=== PATIENT | male | born 1960 | race Caucasian/White ===

== ENCOUNTER → 2022-12-21 23:26 | Outpatient (CLI) | payer BC, SELFPAY ==
[2022-12-21 19:18] LABS: Alanine Aminotransferase 21 U/L (12-78); Albumin Level 4.3 g/dl (3.5-5.0); Albumin/Globulin Ratio 1.9 (1.1-1.8); Alkaline Phosphatase 97 U/L (38-126); Anion Gap 6.5 mEq/L (5-15); Aspartate Amino Transferase 24 U/L (17-59); Bilirubin,Total 0.6 mg/dl (0.2-1.3); Blood Urea Nitrogen 16 mg/dl (9-20); Calcium 9.1 mg/dl (8.4-10.2); Carbon Dioxide 29 mmol/L (22.0-30.0); Chloride 106 mmol/L (98-107); Chol/HDL Ratio 3.2 (1-3.5); Cholesterol 130 mg/dl (140-200); Estimated Glomerular Filt Rate 85 ml/min (>60); GFR (African American) 103 ML/MIN (>60); Globulin 2.3 g/dL (1.3-3.2); Glucose 94 mg/dl (74-100); HDL Cholesterol 41 mg/dl (40-60); Potassium 4.5 mmoL/L (3.5-5.1); Sodium 137 mmol/L (136-145); Total Protein,Serum 6.6 g/dl (6.3-8.2); Triglycerides 123 mg/dl (30-150); VLDL Cholesterol 25 mg/dL (0-40)
[2022-12-21 19:27] LABS: Microalbumin < 6.000 mg/L (0-16.7)
[2022-12-21 19:28] LABS: Direct LDL Cholesterol 71.68 mg/dL (100-129)
[2022-12-21 19:28] LABS: Creatinine,Urine Random 103 mg/dL (Not Estab.)
[2022-12-21 19:39] LABS: Basophils # 0.1 K/mm3 (0-0.2); Basophils % 0.9 % (0.1-2.0); Eosinophils # 0.1 K/mm3 (0.0-0.4); Eosinophils % 1.3 % (0.1-12.0); Hemoglobin 14.3 g/dL (14.1-18.0); Lymphocytes # 0.8 K/mm3 (0.7-4.5); Lymphocytes % 11.2 % (10-50); Mean Corpuscular HGB Conc 31.7 g/dL (31.8-35.4); Mean Corpuscular Hemoglobin 29.4 pg (27.0-31.2); Mean Corpuscular Volume 92.8 fl (80-94); Mean Platelet Volume 9.7 fl (7.4-10.4); Monocytes # 0.6 K/mm3 (0.1-1.0); Monocytes % 8.3 % (1.7-9.3); Neutrophils # 5.8 K/mm3 (1.8-7.8); Neutrophils % 78.3 % (37.0-80.0); Platelet Count 319 K/mm3 (142-424); Red Blood Count 4.85 M/mm3 (4.60-6.20); Red Cell Distribution Width 13.8 % (11.5-17.5); White Blood Count 7.4 K/mm3 (4.8-10.8)
[2022-12-21 19:48] LABS: Prostate Specific Ag Screen 1.1 ng/ml (0.0-4.0); Thyroid Stimulating Hormone 1.49 uIU/mL (0.465-4.68)
[2022-12-21 20:07] LABS: Vitamin B12 836 pg/mL (239-931)
[2022-12-21 20:12] LABS: Hemoglobin A1C 5.2 % (4.0-6.0)
== END ==
PROVIDERS: PCP Nurse Practitioner; Visit Provider Nurse Practitioner
DX: E78.5 Hyperlipidemia, unspecified (principal); I10 Essential (primary) hypertension; K21.9 Gastro-esophageal reflux disease without esophagitis; Z12.5 Encounter for screening for malignant neoplasm of prostate
CPT/HCPCS: 80053; 80061; 82043; 82570; 82607; 83036; 84443; 85025; G0103

== ENCOUNTER → 2023-01-21 06:40 | Outpatient (CLI) | payer BC, SELFPAY ==
[2023-01-21 19:18] LABS: Alanine Aminotransferase 21 U/L (12-78); Albumin Level 4.6 g/dl (3.5-5.0); Alkaline Phosphatase 91 U/L (38-126); Aspartate Amino Transferase 24 U/L (17-59); Bilirubin,Indirect 0.7 mg/dL (0.0-0.9); Bilirubin,Total 0.7 mg/dl (0.2-1.3); Bilirubin,Unconjugated 0.7 mg/dL (0.0-1.1); Total Protein,Serum 6.8 g/dl (6.3-8.2)
== END ==
PROVIDERS: PCP Nurse Practitioner; Visit Provider Nurse Practitioner
DX: E78.5 Hyperlipidemia, unspecified (principal); B35.0 Tinea barbae and tinea capitis; Z79.899 Other long term (current) drug therapy
CPT/HCPCS: 80076

== ENCOUNTER → 2023-03-16 08:57 | Outpatient (CLI) | payer BC, SELFPAY ==
[2023-03-16 18:28] LABS: Basophils % 0.3 % (0.1-2.0); Eosinophils # 0.1 K/mm3 (0.0-0.4); Eosinophils % 0.9 % (0.1-12.0); Hematocrit 39.2 % (42.0-52.0); Hemoglobin 12.7 g/dL (14.1-18.0); Lymphocytes # 0.9 K/mm3 (0.7-4.5); Lymphocytes % 11.1 % (10-50); Mean Corpuscular HGB Conc 32.3 g/dL (31.8-35.4); Mean Corpuscular Hemoglobin 29.5 pg (27.0-31.2); Mean Corpuscular Volume 91.3 fl (80-94); Mean Platelet Volume 10.4 fl (7.4-10.4); Monocytes # 0.7 K/mm3 (0.1-1.0); Monocytes % 9.1 % (1.7-9.3); Neutrophils # 6.3 K/mm3 (1.8-7.8); Neutrophils % 78.5 % (37.0-80.0); Platelet Count 299 K/mm3 (142-424); Red Blood Count 4.29 M/mm3 (4.60-6.20); Red Cell Distribution Width 14.1 % (11.5-17.5)
== END ==
PROVIDERS: PCP Nurse Practitioner; Visit Provider Nurse Practitioner
DX: R60.0 Localized edema (principal)
CPT/HCPCS: 85025

== ENCOUNTER 2024-01-28 18:52 | Outpatient (CLI) | payer BC, SELFPAY ==
[2024-01-28 19:05] LABS: Basophils # 0.1 K/mm3 (0-0.2); Eosinophils # 0.1 K/mm3 (0.0-0.4); Eosinophils % 1.7 % (0.1-12.0); Hematocrit 44.8 % (42.0-52.0); Hemoglobin 14.3 g/dL (14.1-18.0); Lymphocytes # 1.3 K/mm3 (0.7-4.5); Lymphocytes % 25.4 % (10-50); Mean Corpuscular HGB Conc 31.8 g/dL (31.8-35.4); Mean Corpuscular Hemoglobin 30.3 pg (27.0-31.2); Mean Corpuscular Volume 95.3 fl (80-94); Mean Platelet Volume 9.2 fl (7.4-10.4); Monocytes # 0.5 K/mm3 (0.1-1.0); Monocytes % 9.8 % (1.7-9.3); Neutrophils # 3.3 K/mm3 (1.8-7.8); Neutrophils % 62.2 % (37.0-80.0); Platelet Count 245 K/mm3 (142-424); Red Cell Distribution Width 14.2 % (11.5-17.5); White Blood Count 5.2 K/mm3 (4.8-10.8)
[2024-01-28 19:21] LABS: Alanine Aminotransferase 16 U/L (12-78); Albumin Level 4.6 g/dl (3.5-5.0); Albumin/Globulin Ratio 1.9 (1.1-1.8); Alkaline Phosphatase 88 U/L (38-126); Anion Gap 13.7 mEq/L (5-15); Aspartate Amino Transferase 28 U/L (17-59); Bilirubin,Total 0.5 mg/dl (0.2-1.3); Blood Urea Nitrogen 16 mg/dl (9-20); Calcium 9.6 mg/dl (8.4-10.2); Carbon Dioxide 27 mmol/L (22.0-30.0); Chloride 101 mmol/L (98-107); Chol/HDL Ratio 4.4 (1-3.5); Cholesterol 153 mg/dl (140-200); Estimated Glomerular Filt Rate 75 ml/min (>60); GFR (African American) 91 ML/MIN (>60); Globulin 2.4 g/dL (1.3-3.2); Glucose 80 mg/dl (74-100); HDL Cholesterol 35 mg/dl (40-60); Potassium 4.7 mmoL/L (3.5-5.1); Sodium 137 mmol/L (136-145); Triglycerides 174 mg/dl (30-150); VLDL Cholesterol 35 mg/dL (0-40)
[2024-01-28 19:26] LABS: Hemoglobin A1C 5.4 % (4.0-6.0)
[2024-01-28 19:39] LABS: 25-OH Vitamin D, Total 47.3 ng/mL (30-100)
[2024-01-28 20:11] LABS: Vitamin B12 607 pg/mL (239-931)
== END 2024-01-28 23:59 ==
LOC: LAB.DROPOF 18:52
PROVIDERS: PCP Nurse Practitioner; Visit Provider Nurse Practitioner
DX: E78.5 Hyperlipidemia, unspecified (principal); I10 Essential (primary) hypertension; K21.9 Gastro-esophageal reflux disease without esophagitis; F17.210 Nicotine dependence, cigarettes, uncomplicated; Z79.899 Other long term (current) drug therapy
CPT/HCPCS: 80053; 80061; 82306; 82607; 83036; 84443; 85025

== ENCOUNTER 2025-03-29 09:20 | Outpatient (CLI) | payer BC, SELFPAY ==
[2025-03-29 18:46] LABS: Basophils # 0.1 K/mm3 (0-0.2); Basophils % 0.9 % (0.1-2.0); Eosinophils # 0.1 Kmm3 (0.0-0.4); Eosinophils % 2.1 % (0.1-12.0); Hematocrit 43.9 % (42.0-52.0); Hemoglobin 13.9 g/dL (14.1-18.0); Immature Granulocytes # 0.03 10^3uL; Immature Granulocytes % 0.5 %; Lymphocytes % 17.2 % (10-50); Mean Corpuscular HGB Conc 31.7 g/dL (31.8-35.4); Mean Corpuscular Hemoglobin 29.3 pg (27.0-31.2); Mean Corpuscular Volume 92.4 fl (80-94); Mean Platelet Volume 11.1 fl (7.4-10.4); Monocytes # 0.6 K/mm3 (0.1-1.0); Monocytes % 10.1 % (1.7-9.3); Neutrophils # 3.9 K/mm3 (1.8-7.8); Neutrophils % 69.2 % (37.0-80.0); Nucleated Red Blood Cells # 0 10^3/uL; Nucleated Red Blood Cells % 0 %; Platelet Count 210 K/mm3 (142-424); Red Blood Count 4.75 M/mm3 (4.60-6.20); Red Cell Distribution Width 13.9 % (11.5-17.5); Red Cell Distribution Width-SD 47.4 fL; White Blood Count 5.6 K/mm3 (4.8-10.8)
[2025-03-29 19:14] LABS: Alanine Aminotransferase 16 U/L (12-78); Albumin Level 4.3 g/dl (3.5-5.0); Alkaline Phosphatase 81 U/L (38-126); Anion Gap 9.3 mEq/L (5-15); Aspartate Amino Transferase 21 U/L (17-59); Bilirubin,Total 0.8 mg/dl (0.2-1.3); Blood Urea Nitrogen 16 mg/dl (9-20); Calcium 9.1 mg/dl (8.4-10.2); Carbon Dioxide 27 mmol/L (22.0-30.0); Chloride 104 mmol/L (98-107); Chol/HDL Ratio 3.1 (1-3.5); Cholesterol 141 mg/dl (140-200); Estimated Glomerular Filt Rate 84 ml/min (>60); GFR (African American) 102 ML/MIN (>60); Globulin 2.1 g/dL (1.3-3.2); Glucose 84 mg/dl (74-100); HDL Cholesterol 46 mg/dl (40-60); Potassium 4.3 mmoL/L (3.5-5.1); Sodium 136 mmol/L (136-145); Total Protein,Serum 6.4 g/dl (6.3-8.2); Triglycerides 88 mg/dl (30-150); VLDL Cholesterol 18 mg/dL (0-40)
[2025-03-29 19:28] LABS: Direct LDL Cholesterol 70.92 mg/dL (100-129)
[2025-03-29 19:48] LABS: Prostate Specific Ag Screen 1.2 ng/ml (0.0-4.0)
[2025-03-29 19:55] LABS: HIV Combo NEGATIVE (Negative)
[2025-03-29 20:51] LABS: Hepatitis C Ab Qual. W/ RFX REACTIVE (Negative)
--- OUTSIDE RECORDS SUMMARY | 2025-03-30 13:19 | XMS_ITS | Clinical Summary ---
Author Organization [facility] Address [address] [place] [address] Phone Care Team Providers Care Beam Department Supervisor Name Role Phone CamachoCarolee bassett Niya LOPEZ Primary Care Provider Allergies No known active allergies Medications lisinopril (PRINIVIL;ZESTRI L) 10 mg tablet Take 1 Tab by mouth daily. 30 Tab 0 3 Active Additional Information Patient not taking.Reason: Advised by Physician, Reported on 03/07/2024 atorvastatin (LIPITOR) 80 mg tablet Take 1 Tab by mouth daily. 30 Tab 0 3 Active omeprazole (PRILOSEC) 20 mg Oral Capsule, Delayed Release(E.C.)Ind ications:Gastroe sophageal reflux disease without esophagitis TAKE 1 CAPSULE EVERY MORNING BEFORE BREAKFAST 90 Capsule 3 3 Active Additional Information Patient taking differently: 20 mg Oral EVERY DAY BEFORE MEAL, Reason: Advised by Physician, Reported on 02/22/2024 lisinopriL-hydro chlorothiazide (PRINZIDE;ZESTOR ETIC) 20-12.5 mg Oral Tablet Take 1 Tablet by mouth daily. 4 Active Active Problems Problem Noted Date Diagnosed Date Non-recurrent unilateral ing uinal hernia without obstruction or gangrene 07/29/2021 Assessment & Plan (02/11/2024 4:40 PM EDT): Patient has a left inguinal hernia on exam. I reviewed his surgical options including open or robotic approaches. We discussed the relative pros and cons of each approach. We discussed the difference between reducible, incarcerated, and strangulated hernias. I answered all of his questions regarding his options. 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 I have recommended proceeding with an open left inguinal hernia repair with mesh. I reviewed the risks, benefits, and alternatives of surgery. I reviewed the risks, benefits, and types of mesh. We discussed postoperative course and care. Answered all of his questions. he stated his understanding and desire to proceed with surgery. he states that he is agreeable to the use of mesh. We discussed getting PCP risk stratification and optimization prior to surgery. Assessment & Plan (07/29/2021 3:06 PM EDT): The patient has a reducible right inguinal hernia on physical exam. There is no evidence of a left inguinal hernia. We discussed surgical options for repair including robotic versus open. We discussed the utilization of mesh for hernia repairs. Given that the patient has a unilateral hernia which is moderate to large in size, I have recommended an open repair given his intense work. I reviewed the risks, benefits, and alternatives of an open right inguinal hernia repair with mesh. We discussed postoperative course and care. We discussed postoperative restrictions. I reviewed the types, risks, and benefits of hernia mesh. I answered all of his and his 's questions. The patient stated his understanding and desire to proceed with surgery. Patient reports that [place] is a more convenient location for him to have surgery. I reviewed warning signs and symptoms that should prompt urgent evaluation at the hospital. Patient stated his understanding. ED (erectile dysfunction) GERD (gastroesophageal reflux disease) Hyperlipemia Encounters Date Type Department Care Team Description 01/17/2025 Orders Only [facility] [id number] [id number] Negro Robb MD Preop testing (Primary Dx) from Last 3 Months Surgical History Surgery Date Site/Laterality Comments FOOT SURGERY BONE SPUR REMOVED ELBOW SURGERY CHIP REMOVED INGUINAL HERNIA REPAIR 08/27/2021 Right Right open inguinal hernia repair with mesh; Surgeon: Reyes De La Cruz DO; Location: [facility] MAIN OR; Service: General Medical devices from this surgery are in the Medical Devices section. UPPER GASTROINTESTINAL ENDOSCOPY COLONOSCOPY INGUINAL HERNIA REPAIR 02/28/2024 Left Open left inguinal hernia repair with mesh; Surgeon: Reyes De La Cruz DO; [facility]; Service: General Medical devices from this surgery are in the Medical Devices section. Medical History Medical History Date Comments HTN (hypertension) High cholesterol Right inguinal hernia Heartburn Ivory esophagus Family History Medical History Relation Name Comments Heart Disease Father Cancer Mother Anesth Problems Neg Hx Relation Name Status Comments Father Mother Social History Tobacco Use Types Packs/Day Years Used Date Smoking Tobacco: Every Day Cigarettes 1 47.4 Started: 10/25/1977 Passive Smoke Exposure: Current Smokeless Tobacco: Never Tobacco Cessation:Ready to Q uit: Not Asked; Counseling Given: Not Answered Alcohol Use Standard Drinks/Week Comments Yes 3 (1 standard drink = 0.6 oz pur e alcohol) daily Sex and Gender Information Value Date Recorded Sex Assigned at Not on file Legal Sex Male 3:53 AM EDT Gender Identity Not on file Sexual Orientation Not on file Obstetrics History Last Filed Vital Signs Vital Sign Reading Time Taken Comments Blood Pressure 125/82 03/07/2024 1:53 PM EDT Pulse 67 03/07/2024 1:53 PM EDT Temperature 36.6 C (97.9 F) 03/07/2024 1:53 PM EDT Respiratory Rate 17 03/07/2024 1:53 PM EDT Oxygen Saturation 95% 02/28/2024 11:45 AM EDT Inhaled Oxygen Concentration - - Weight 78.2 kg (172 lb 6.4 oz) 03/07/2024 1:53 P M EDT Height 177.8 cm (5' 10 ) 03/07/2024 1:53 PM EDT Body Mass Index 24.74 03/07/2024 1:53 PM EDT Plan of Treatment Health Maintenance Due Date Last Done Comments Annual Wellness Exam 1961 Hepatitis C Screening 1976 Pneumococcal Vaccine 50+ (1 of 2 - PCV) 1977 Cologuard 2003 FIT 2003 Sigmoidoscopy 2003 Virtual Colonography 2003 Low Dose Lung Cancer Screening 03/11/2023 03/11/2022 AAA Screening 2023 COVID-19 Vaccine (2023-2 5 season) 2024 01/28/2021, 01/02/2021 Influenza Vaccine (Season Ended) 2025 09/30/2022, 11/05/2021 DTaP/TDaP/Td (2 - Td or Tdap) 11/15/2027 11/15/2017 Colon Cancer Screening 03/12/2032 Colonoscopy 03/12/2032 03/12/2022 Zoster Completed 02/03/2022, 11/05/2021 Hepatitis B Vaccine Aged Out No longe r eligible based on patient's age to complete this topic Meningococcal B Vaccine Aged Out No l onger eligible based on patient's age to complete this topic Medical Devices Implanted Type Area Fashion Illustrator Device Identifier Shelf Expiration Date Model / Serial / Lot Mesh Std 3x6in Rect Marlx Perfx Knit Prperitn [employer] [place] - [id number] Implanted:Qty : 1 on 08/27/2021 by Reyes De La Cruz DO at [facility] Right: Inguinal CR BARD:DAVOL 11/21/2025 [id number] / / [id number] Mesh Std 3x6in Rect Marlx Perfx Knit Prperitn Nabsb [place] - [id number] Implanted:Qty : 1 on 02/28/2024 by Reyes De La Cruz DO at [facility] Left: Inguinal CR BARD:DAVOL [id number] 03/21/2028 [id number] / / [id number] Procedures Procedure Name Priority Date/Time Associated Diagnosis Comments GMED EGD-COLONOSCOPY Routine 03/12/2022 1:20 PM EDT Gastroesophageal reflux disease without esophagitis Screening for colon cancer Family history of colonic polyps Gastric polyp CT LUNG CANCER SCREENING LOW DOSE Routine 03/11/2022 9:10 AM EDT Screening for malignant neoplasm of respiratory organ Personal history of tobacco use, presenting hazards to health from Last 3 Months or Most Recently Relevant to Health Maintenance Results * [facility]ED EGD-COLONOSCOPY (03/12/2022 1:20 PM EDT) 03/12/2022 1:20 PM EDT Impressions [facility] - 03/12/2022 2:47 PM EDT Plan: This section is an excerpt of the full report. us Bob Olivo MD GI PROCEDURE ORDERABLE S Final Result [facility] [place] [address] * CT LUNG CANCER SCREENING LOW DOSE (03/11/2022 9:10 AM EDT) Anatomical Region Laterality Modality Lung Computed Tomogra phy 03/11/2022 9:10 AM EDT Impressions 03/11/2022 10:05 AM EDT 1. No suspicious pulmonary nodule. Category 1. 2. Age indeterminate compression fracture superior endplate L1 vertebral body. If patient demonstrates acute onset mid back pain, MRI Lumbar spine without contrast can be pursued to determine chronicity and evaluate appropriateness of percutaneous intervention with Interventional Radiology. Category S. RECOMMENDATION: Low Dose CT - 1 Yr A summary letter communicating these results will be mailed to the patient's address of record. CODE Business Hours: Results will be conveyed to the patient's care team by Radiology personnel as soon as possible following completion of this dictation, during the caregiver's regular business hours. Note: Radiology results need to be interpreted within a comprehensive clinical context. If you have questions about the radiology report, please contact the office of the ordering clinician. [email or web address] Narrative 03/11/2022 10:[address] LUNG CANCER SCREENING LOW DOSE 03/11/2022 9:10 AM CLINICAL HISTORY: Asymptomatic patient meeting NCCN high risk criteria for lung screening. Z12.2-Encounter for screening for malignant neoplasm of respiratory [id number] Z87.891-Personal history of nicotine [id number]-59-CM. COMPARISON: None. PROCEDURE COMMENTS: Noncontrast, low-dose, multidetector CT chest per department protocol. Interactive 3-D postprocessing done by the reviewing physician on a Oyster workstation, using Maximum intensity projections (MIPS) and SYNGO LUNG CAD for improved lesion detection. Diaz images archived to PACS. Dose 1 : CT DLP Total : 75.6 mGycm DLP Spiral Max : 70.08 mGycm Maximum CTDI Vol : 1.74 mGy FINDINGS: No mediastinal or axillary adenopathy. Great vessels, heart chambers are normal caliber. Small hiatal hernia noted. Airways are patent. Emphysema. No dense consolidation or effusion. Pulmonary nodules: No suspicious pulmonary nodules. Coronary artery calcification: Mild. Age indeterminate compression fracture superior endplate of L1 vertebral body. FOLLOW-UP CODE: Lung-RADS Category 1: Negative: No nodule or definitely benign nodule(s). Continued ANNUAL LOW-DOSE SCREENING CT SCAN ([id number] [id number]) suggested if age <78. Lung-RADS Modifier S: Clinically Significant or Potentially Significant Findings (Non Lung Cancer) Procedure Note Junaid Rankin MD - 03/11/2022 CT LUNG CANCER SCREENING LOW DOSE 03/11/2022 9:10 AM CLINICAL HISTORY: Asymptomatic patient meeting NCCN high risk criteria forlung screening. Z12.2-Encounter for screening for malignant neoplasm ofrespiratory [id number]-CM Z87.891-Personal history of nicotine hvmqijgxuz-ZUA-01-CM. COMPARISON: None. PROCEDURE COMMENTS: Noncontrast, low-dose, multidetector CT chest perdepartment protocol. Interactive 3-D postprocessing done by the reviewing physicianon a Oyster workstation, using Maximum intensity projections (MIPS) and Outside.in CAD for improved lesion detection. Diaz images archived to PACS. Dose 1 : CT DLP Total : 75.6 mGycm DLP Spiral Max : 70.08 mGycm Maximum CTDI Vol : 1.74 mGy FINDINGS: No mediastinal or axillary adenopathy. Great vessels, heartchambers are normal caliber. Small hiatal hernia noted. Airways are patent. Emphysema. No dense consolidation or effusion. Pulmonary nodules: No suspicious pulmonary nodules. Coronary artery calcification: Mild. Age indeterminate compression fracture superior endplate of L1 vertebralbody. FOLLOW-UP CODE: Lung-RADS Category 1: Negative: No nodule or definitelybenign nodule(s). Continued ANNUAL LOW-DOSE SCREENING CT SCAN (IMG [id number])suggested if age <78. Lung-RADS Modifier S: Clinically Significant or Potentially Significant Findings (Non Lung Cancer) IMPRESSION: 1. No suspicious pulmonary nodule. Category 1. 2. Age indeterminate compression fracture superior endplate L1 vertebralbody. If patient demonstrates acute onset mid back pain, MRI Lumbar spinewithout contrast can be pursued to determine chronicity and evaluateappropriateness of percutaneous intervention with Interventional Radiology. Category S. RECOMMENDATION: Low Dose CT - 1 Yr A summary letter communicating these results will be mailed to thepatient's address of record. CODE Business Hours: Results will be conveyed to the patient's care teamby Radiology personnel as soon as possible following completion of thisdictation, during the caregiver's regular business hours. Note: Radiology results need to be interpreted within a comprehensiveclinical context. If you have questions about the radiology report, please contactthe office of the ordering clinician. [email or web address] Carolee Sauer [employer] SPECIALIST IMG CT ORDERABLES Final Result from Last 3 Months or Most Recently Relevant to Health Maintenance Insurance ANTHEM PPO ANTHEM PPO ANTHEM PPO ANTHEM PPO Care Teams Beam Department Supervisor Relationship Specialty Start Date End Date Carolee Sauer APRN [address] [facility] [address] [place] [id number] PCP - General Nurse Practitioner 03/12/22
[2025-03-31 09:13] LABS: Hepatitis B Surface Antigen Negative (Negative)
[2025-03-31 11:16] LABS: Testosterone,Total 638 ng/dL (264-916)
== END 2025-03-29 23:59 | disposition home or self-care (01) ==
LOC: LAB.DROPOF 03-30 13:17
PROVIDERS: PCP Family Medicine; Visit Provider Family Medicine
DX: Z12.5 Encounter for screening for malignant neoplasm of prostate (principal); I10 Essential (primary) hypertension; R68.82 Decreased libido
CPT/HCPCS: 80053; 80061; 84403; 85025; 86803; 87340; 87389; 87522; G0103